=== PATIENT | male | born 1970 | race Caucasian/White ===

== ENCOUNTER 2020-11-07 15:43 | Emergency (ER) | payer SELFPAY ==
[2020-11-07 15:45] VITALS: BP 122/83; PULSE 136; RESP 16; TEMP 36.7; O2SAT 97; BMI 25.1
--- NOTE | 2020-11-07 16:09 | EKG12_ITS ---
Test Reason : MENTAL CLEARANCE Blood Pressure : / mmHG Vent. Rate : 073 BPM Atrial Rate : 073 BPM P-R Int : 124 ms QRS Dur : 084 ms QT Int : 376 ms P-R-T Axes : 053 052 069 degrees QTc Int : 414 ms Normal sinus rhythm Normal ECG Confirmed by DAVID MASTERS, CRISTIAN ([id number]), writer editor SAÚL ASHBY ([id number]) on 11/11/2020 9:47:22 AM Referred By: MIKO Confirmed By:RONNIE HERNANDEZ MD
[2020-11-07 16:26] LABS: Absolute Lymphocyte Count 1.21 X10^3/uL (0.83-4.51); Absolute Neutrophil Count 4.4 X10^3/uL (2.0-7.7); Basophil# 0.06 X10^3/uL; Eosinophil# 0.01 X10^3/uL; Eosinophils% 0.2 % (0-5); Hematocrit 47.8 % (40-54); Hemoglobin 15.3 g/dL (13.0-16.5); Lymphocyte # 1.21 X10^3/ul (0.83-4.51); Lymphocyte % 19.2 % (19-41); Mean Corpuscular Hgb 25.6 pg (27.0-32.0); Mean Corpuscular Volume 80.1 fL (80-94); Mean Platelet Vol. 11.4 fl (6.2-12.0); Monocyte# 0.59 X10^3/uL; Monocyte% 9.4 % (0-10); NRBC Flagged by Analyzer 0 % (0-5); Neutrophil % 69.7 % (47-70); Platelet Count 257 K/mm3 (150-450); RBC Distribution Width CV 14.4 % (11.6-14.6); RBC Distribution Width SD 41.5 fl (35.1-43.9); Red Blood Count 5.97 M/mm3 (4.6-6.2); White Blood Count 6.3 K/mm3 (4.4-11.0)
[2020-11-07 16:30] LABS: Anion Gap 6 (5-15); BUN 8 mg/dL (7-18); BUN/Creat Ratio 8.6 RATIO (10-20); Calcium,Total 8.8 mg/dL (8.5-10.1); Chloride 104 mmol/L (98-107); Creatinine, Serum 0.93 mg/dL (0.70-1.30); EST Glomerular Filtration Rate 92 mL/min (>60); Est Glom Filt Rate - Afr Amer 111 mL/min (>60); Estimated Creatinine Clearance 97.14 ml/min; Glucose 98 mg/dL (74-106); Potassium 3.8 mmol/L (3.5-5.1); Sodium Level 135 mmol/L (136-145)
--- NOTE | 2020-11-07 18:11 | EDS_ITS ---
HPI <Dr. Evan Maynard MD - Last Filed: 11/07/20 22:23> History of Present Illness Chief Complaint: Suicidal Informant: patient Onset/Context/Timing Onset: Today Context: Gradual Onset Timing: Continuous Associated Symptoms Associated Symptoms ED: Negative for abdominal pain Narrative Narrative: 50-year-old male history of schizophrenia. Says been out of his medications for a month. States he has been convicted by God to commit suicide. Denies any prior psychiatric hospitalization. Denies any prior suicide attempt or attempt at self-harm. States at work today broke down crying and he was sent into the emergency department. Denies any recent illness. Avelino es any drug use. Prior similar symptoms: Yes Recent Illness/Hospitalization: No PFSH <Dr. Evan Maynard MD - Last Filed: 11/07/20 22:23> PFSH Home Medications NK 11/07/20 [History Last Taken Unknown] Allergy/AdvReac Type Severity Reaction Status Date / Time No Known Allergies Allergy Verified 11/07/20 15:48 Social History Smoking Status: Never smoker ROS <Dr. Evan Maynard MD - Last Filed: 11/07/20 22:23> ROS ED ROS Narrative Patient denies recent illness. Review of Systems ROS Unobtainable: Denies due to encephalopathy Constitutional Constitutional ED: Denies anorexia, lethargy or malaise Eyes Eyes: Denies change in vision ENT ENT ED: Denies bleeding gums or dry mouth Cardiovascular Cardiovascular: Denies abdominal pain Respiratory/Chest Respiratory/Chest: Denies chest congestion or chest tightness Gastrointestinal Gastrointestinal: Denies abdominal pain Genitourinary Genitourinary ED: Denies flank pain Musculoskeletal Musculoskeletal: Denies back pain Integumentary Denies change in hair or jaundice Neurologic Neurologic: Denies abnormal speech Psychiatric Psychiatric: Reports as per HPI, depression, difficulty concentrating, suicidal ideation and suicidal thoughts; Denies cognitive impairment, confusion, hallucinations or homicidal ideation Endocrine Endocrinology: Denies change in body appearance Hematologic/Lymphatic Hematologic/Lymphatic: Denies lymphadenopathy Allergic/Immunologic Allergic/Immunologic ED: Denies lip swelling or mouth swelling EXAM <Dr. Evan Maynard MD - Last Filed: 11/07/20 22:23> Physical Exam Narrative Exam Narrative: Middle-age male no acute distress vital signs stable afebrile. He is cooperative. He makes eye contact. Is not violent. Exam normal. Lungs are clear equal symmetrical. Heart regular rhythm currently his heart rate around 100. It was higher when he initially was triaged. Abdomen soft nontender normal bowel sounds no peritoneal signs. Moving all 4 extremities. No signs of track brown or injuries. Back nontender. Neurologically is awake alert with no focal motor deficits. Const Vital Signs: 11/07/20 15:45 11/07/20 21:40 11/07/20 22:35 Temperature 98.0 F Temperature Source Temporal Pulse Rate 136 H Respiratory Rate 16 14 16 Blood Pressure 122/83 H Blood Pressure Mean 96 Pulse Ox 97 Oxygen Delivery Method Room Air 11/08/20 00:06 11/08/20 01:59 11/08/20 02:50 Temperature Temperature Source Pulse Rate 88 Respiratory Rate 16 14 14 Blood Pressure 124/72 H Blood Pressure Mean 89 Pulse Ox 95 Oxygen Delivery Method Room Air 11/08/20 03:22 11/08/20 04:20 11/08/20 05:49 Temperature Temperature Source Pulse Rate 85 Respiratory Rate 14 14 16 Blood Pressure 130/72 H Blood Pressure Mean 91 Pulse Ox 99 Oxygen Delivery Method Room Air Positive well nourished, well developed, alert, oriented x3 and no apparent distress General Appearance ED: active, cooperative, comfortable, well kempt and well developed HEENT Reports normocephalic and moist mucous membranes Eyes PERRL and EOMs intact bilaterally Neck full ROM, No nuchal rigidity, no lymphadenopathy, supple, no meningeal signs and no JVD Lymph Lymphatic: no lymphadenopathy noted and no lymphedema noted; Negative for lymphedema or lymphadenopathy Chest Wall inspection of chest normal and palpation of chest normal Resp normal respiratory effort, normal air movement, no retractions and no use of accessory muscles Cardio regular rate, regular rhythm, S1 normal heart sound, S2 normal heart sound, no murmurs, no rub, no gallops, no clicks and no JVD GI normal to inspection, nondistended, normoactive bowel sounds, soft to palpation, non-tender and non-distended Back/Spine no CVA tenderness, normal ROM and normal to inspection Extremity normal to inspection, full ROM, no joint enlargement, no clubbing, cyanosis or edema, no calf tenderness and no pedal edema Neuro oriented x3, CN's II-XII intact bilaterally, moves all extremities, no focal motor deficits and no sensory deficits noted Psych cooperative, speech normal, activity/motor behavior normal, denies hallucinations and denies homicidal ideation; Negative for thought process normal or denies suicidal ideation Appearance: grossly normal, appropriate and well kempt Skin no rashes or lesions noted and no wounds <Dr. Edmund Thompson MD - Last Filed: 11/08/20 06:45> Physical Exam Const Vital Signs: 11/07/20 15:45 11/07/20 21:40 11/07/20 22:35 Temperature 98.0 F Temperature Source Temporal Pulse Rate 136 H Respiratory Rate 16 14 16 Blood Pressure 122/83 H Blood Pressure Mean 96 Pulse Ox 97 Oxygen Delivery Method Room Air 11/08/20 00:06 11/08/20 01:59 11/08/20 02:50 Temperature Temperature Source Pulse Rate 88 Respiratory Rate 16 14 14 Blood Pressure 124/72 H Blood Pressure Mean 89 Pulse Ox 95 Oxygen Delivery Method Room Air 11/08/20 03:22 11/08/20 04:20 11/08/20 05:49 Temperature Temperature Source Pulse Rate 85 Respiratory Rate 14 14 16 Blood Pressure 130/72 H Blood Pressure Mean 91 Pulse Ox 99 Oxygen Delivery Method Room Air MDM <Dr. Evan Maynard MD - Last Filed: 11/07/20 22:23> MDM MDM Narrative Medical decision making narrative: Patient be evaluated by crisis. He is medically cleared by myself on both a historical and physical exam basis. Also by his laboratories. Repeat exam patient doing well 10:20 PM. Awaiting finalization of crisis evaluation and possible placement. Lab Data Attestation: I reviewed the patient's lab results. Lab results narrative: CBC unremarkable. White count of 6. Hemoglobin 15. Chemistries unremarkable gap of 6. Creatinine 0.9. Alcohol negative. Covid negative. Tox negative. Labs: Laboratory Results - last 24 hr 11/07/20 11/07/20 11/07/20 16:03 16:03 16:03 WBC 6.3 RBC 5.97 Hgb 15.3 Hct 47.8 MCV 80.1 MCH 25.6 L MCHC 32.0 RDW Std Deviation 41.5 RDW Coeff of [place] 14.4 Plt Count 257 MPV 11.4 Immature Gran % (Auto) 0.500 Neut % (Auto) 69.7 Lymph % (Auto) 19.2 [place] % (Auto) 9.4 Eos % (Auto) 0.2 Baso % (Auto) 1.0 Absolute Neuts (auto) 4.4 Absolute Lymphs (auto) 1.21 Nucleated RBC % 0 Sodium 135 L Potassium 3.8 Chloride 104 Carbon Dioxide 25.0 Anion Gap 6 BUN 8 Creatinine 0.93 Estim Creat Clear Calc 97.14 Est GFR (MDRD) Af Amer 111 Est GFR (MDRD) Non-Af 92 BUN/Creatinine Ratio 8.6 L Glucose 98 Calcium 8.8 Total Bilirubin Direct Bilirubin AST ALT Alkaline Phosphatase Total Protein Albumin Globulin Urine Opiates Screen Urine Methadone Screen Ur Barbiturates Screen Ur Phencyclidine Scrn Ur Amphetamines Screen U Methamphetamin-MDMA U Benzodiazepines Scrn Urine Cocaine Screen U Cannabinoids Screen Ur Drug Screen Comment Ethyl Alcohol 4.0 11/07/20 11/07/20 16:03 19:40 WBC RBC Hgb Hct MCV MCH MCHC RDW Std Deviation RDW Coeff of [place] Plt Count MPV Immature Gran % (Auto) Neut % (Auto) Lymph % (Auto) [place] % (Auto) Eos % (Auto) Baso % (Auto) Absolute Neuts (auto) Absolute Lymphs (auto) Nucleated RBC % Sodium Potassium Chloride Carbon Dioxide Anion Gap BUN Creatinine Estim Creat Clear Calc Est GFR (MDRD) Af Amer Est GFR (MDRD) Non-Af BUN/Creatinine Ratio Glucose Calcium Total Bilirubin 0.30 Direct Bilirubin 0.12 AST 10 L ALT 24 Alkaline Phosphatase 76 Total Protein 7.5 Albumin 4.1 Globulin 3.4 Urine Opiates Screen NEGATIVE Urine Methadone Screen NEGATIVE Ur Barbiturates Screen NEGATIVE Ur Phencyclidine Scrn NEGATIVE Ur Amphetamines Screen NEGATIVE U Methamphetamin-MDMA NEGATIVE U Benzodiazepines Scrn NEGATIVE Urine Cocaine Screen NEGATIVE U Cannabinoids Screen NEGATIVE Ur Drug Screen Comment Ethyl Alcohol Rhythm Strip Rhythm Strip: Sinus Rhythm Rate: 73 Ectopy: None EKG Initial EKG: Attestation: I personally reviewed and interpreted this EKG as follows: Interpretation: Sinus Rhythm and No Acute Injury Pattern Comments: Normal sinus rhythm rate of 73 no acute signs of NM nor ischemia. Prior EKG tracings: not available for review Prior: No Prior <Dr. Edmund Thompson MD - Last Filed: 11/08/20 06:45> MDM MDM Narrative Medical decision making narrative: Patient presents with depression and suicidal ideation. Patient was turned over to me at change of shift. Patient initially seen by Dr. Maynard. 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 No issues arose. Patient's care will be transferred to Dr. Mendoza this morning at change of shift. Crisis is aware of him and making arrangements for transfer to psychiatric facility for appropriate definitive care. Based on report given by Dr. Maynard and review of his laboratory studies in my professional opinion patient is medically cleared for transfer to psychiatric facility. Lab Data Attestation: I reviewed the patient's lab results. Labs: Laboratory Results - last 24 hr 11/07/20 11/07/20 11/07/20 16:03 16:03 16:03 WBC 6.3 RBC 5.97 Hgb 15.3 Hct 47.8 MCV 80.1 MCH 25.6 L MCHC 32.0 RDW Std Deviation 41.5 RDW Coeff of [place] 14.4 Plt Count 257 MPV 11.4 Immature Gran % (Auto) 0.500 Neut % (Auto) 69.7 Lymph % (Auto) 19.2 [place] % (Auto) 9.4 Eos % (Auto) 0.2 Baso % (Auto) 1.0 Absolute Neuts (auto) 4.4 Absolute Lymphs (auto) 1.21 Nucleated RBC % 0 Sodium 135 L Potassium 3.8 Chloride 104 Carbon Dioxide 25.0 Anion Gap 6 BUN 8 Creatinine 0.93 Estim Creat Clear Calc 97.14 Est GFR (MDRD) Af Amer 111 Est GFR (MDRD) Non-Af 92 BUN/Creatinine Ratio 8.6 L Glucose 98 Calcium 8.8 Total Bilirubin Direct Bilirubin AST ALT Alkaline Phosphatase Total Protein Albumin Globulin Urine Opiates Screen Urine Methadone Screen Ur Barbiturates Screen Ur Phencyclidine Scrn Ur Amphetamines Screen U Methamphetamin-MDMA U Benzodiazepines Scrn Urine Cocaine Screen U Cannabinoids Screen Ur Drug Screen Comment Ethyl Alcohol 4.0 11/07/20 11/07/20 16:03 19:40 WBC RBC Hgb Hct MCV MCH MCHC RDW Std Deviation RDW Coeff of [place] Plt Count MPV Immature Gran % (Auto) Neut % (Auto) Lymph % (Auto) [place] % (Auto) Eos % (Auto) Baso % (Auto) Absolute Neuts (auto) Absolute Lymphs (auto) Nucleated RBC % Sodium Potassium Chloride Carbon Dioxide Anion Gap BUN Creatinine Estim Creat Clear Calc Est GFR (MDRD) Af Amer Est GFR (MDRD) Non-Af BUN/Creatinine Ratio Glucose Calcium Total Bilirubin 0.30 Direct Bilirubin 0.12 AST 10 L ALT 24 Alkaline Phosphatase 76 Total Protein 7.5 Albumin 4.1 Globulin 3.4 Urine Opiates Screen NEGATIVE Urine Methadone Screen NEGATIVE Ur Barbiturates Screen NEGATIVE Ur Phencyclidine Scrn NEGATIVE Ur Amphetamines Screen NEGATIVE U Methamphetamin-MDMA NEGATIVE U Benzodiazepines Scrn NEGATIVE Urine Cocaine Screen NEGATIVE U Cannabinoids Screen NEGATIVE Ur Drug Screen Comment Ethyl Alcohol Discharge Plan Triage Chief Complaint: Suicidal ED Provider: Evan Maynard Dx/Rx/DC Orders Clinical Impression: Acute depression, Depression with suicidal ideation, Schizophrenia Prescriptions: No Action NK RF: 0 Primary Care Provider: Care Physician,No Primary Referrals: Care Physician,No Primary [Primary Care Provider] - Disposition Disposition: Psychiatric Hospital or Unit
--- NOTE | 2020-11-07 18:33 | CM.ED ---
SOCIAL WORK Patient is self-pay. Crisis to evaluate. Referral faxed and called to Crisis at this time as patient is medically cleared. Harjinder Gillespie, BI REPORT DEVELOPER, FRONT SIGHT ATTACHER
--- NOTE | 2020-11-07 19:41 | CM.ED ---
SOCIAL WORK Monica from Crisis on phone with patient at this time. Harjinder Gillespie, BRICKLAYER'S ASSISTANT, CODE MACHINE OPERATOR
--- NOTE | 2020-11-07 20:17 | CM.ED ---
SOCIAL WORK Received call from Monica with Crisis, plan is for inpatient psych. Monica to facilitate placement. Staff kevin. Harjinder Gillespie, CREDIT CONTROL CLERK, COPPER PLATER
[2020-11-07 20:18] LABS: Amphetamine Urine VISTA NEGATIVE (<1000 ng/mL); Barbiturate Urine VISTA NEGATIVE (< 200 ng/mL); Benzodiazepine Urine VISTA NEGATIVE (< 200 ng/mL); Cocaine Urine VISTA NEGATIVE (< 300 ng/mL); Ecstacy Urine VISTA NEGATIVE (< 500 ng/mL); Methadone Urine VISTA NEGATIVE (< 300 ng/mL); PCP Urine VISTA NEGATIVE (< 25 ng/mL); THC Urine VISTA NEGATIVE (< 50 ng/mL); Vista UDS pH Range 6
[2020-11-07 21:40] VITALS: RESP 14
[2020-11-07 22:35] VITALS: RESP 16
[2020-11-08] VITALS (10 sets, daily range): BP systolic 124–138; BP diastolic 66–88; PULSE 69–88; RESP 14–16; TEMP 36.2; O2SAT 95–99
[2020-11-08 01:14] LABS: AST(SGOT) 10 U/L (15-37); Alanine Aminotransfer ALT/SGPT 24 U/L (16-61); Albumin, Serum 4.1 g/dL (3.2-5.0); Alkaline Phosphatase 76 U/L (45-117); Bilirubin, Direct 0.12 mg/dL (0.00-0.30); Globulin 3.4 g/dL (2.2-4.2); Protein, Total 7.5 g/dL (6.4-8.2)
--- NOTE | 2020-11-08 10:31 | CM.ED ---
SOCIAL WORK Call to Crisis for update on placement, spoke with Katt. Per [facility], referral [facility] for [facility] case agreement as patient is self-pay. Pending review at this time. Harjinder Gillespie, DREDGE DECKHAND, MORTGAGE COORDINATOR
== END 2020-11-08 12:02 ==
PROVIDERS: Emergency Provider Emergency Medicine
DX: F32.9 Major depressive disorder, single episode, unspecified (principal); F20.9 Schizophrenia, unspecified; R45.851 Suicidal ideations
CPT/HCPCS: 80048; 80076; 80307; 82077; 85025; 87426; 93005; 99284

== ENCOUNTER → 2024-09-22 | Outpatient (CLI) | payer OTHER, SELFPAY ==
--- NOTE | 2024-09-22 11:05 | RAD_ITS ---
PROCEDURE: ORBITS FOR FOREIGN BODY 09/22/2024 REASON FOR EXAM: MRI CLEARANCE TECHNIQUE: 2 view(s) of the facial bones COMPARISON: None available FINDINGS: No radiopaque foreign body identified. RAD/Orbits for Foreign Body IMPRESSION: No radiopaque foreign body identified. Reading Location: [id number]
[2024-09-22 13:17] LABS: Erythrocyte Sedimentation Rate 4 mm/hr (0-20)
[2024-09-22 13:21] LABS: Absolute Lymphocyte Count 1.41 X10^3/uL (0.83-4.51); Absolute Neutrophil Count 2.3 X10^3/uL (2.0-7.7); Basophil# 0.05 X10^3/uL; Basophil% 1.2 % (0-1); Eosinophil# 0.04 X10^3/uL; Eosinophils% 0.9 % (0-5); Hematocrit 43.4 % (40-54); Hemoglobin 13.9 g/dL (13.0-16.5); Lymphocyte # 1.41 X10^3/ul (0.83-4.51); Lymphocyte % 32.6 % (19-41); Mean Corpuscular Hgb 25.7 pg (27.0-32.0); Mean Corpuscular Volume 80.4 fL (80-94); Mean Platelet Vol. 10.7 fl (6.2-12.0); Monocyte# 0.52 X10^3/uL; NRBC Flagged by Analyzer 0 % (0-5); Neutrophil # 2.29 X10^3/uL (2.7-7.7); Neutrophil % 53.1 % (47-70); Platelet Count 231 K/mm3 (150-450); RBC Distribution Width CV 14.6 % (11.6-14.6); RBC Distribution Width SD 42.5 fl (35.1-43.9); White Blood Count 4.3 K/mm3 (4.4-11.0)
[2024-09-22 14:00] LABS: ALB/GLOB Ratio 2.2 RATIO (0.9-2.4); AST(SGOT) 15 U/L (<=37); Alanine Aminotransfer ALT/SGPT 20 U/L (<=46); Albumin, Serum 4.4 g/dL (3.5-5.0); Alkaline Phosphatase 67 U/L (40-129); Anion Gap 10 (5-15); BUN 14 mg/dL (4-19); Calcium,Total 8.4 mg/dL (7.6-11.0); Carbon Dioxide 22.9 mmol/L (21.0-32.0); Chloride 99 mmol/L (98-108); Creatinine, Serum 0.93 mg/dL (0.70-1.20); EST Glomerular Filtration Rate 99 (>60); Glucose 92 mg/dL (70-99); Potassium 4.1 mmol/L (3.3-5.1); Protein, Total 6.3 g/dL (5.9-8.4); Sodium Level 132 mmol/L (133-145)
[2024-09-22 14:01] LABS: CRP < 3.00 mg/L (0.0-3.0); Magnesium 2.5 mg/dL (1.5-2.2)
[2024-09-25 15:08] LABS: ANTINUCLEAR ANTIBODIES DIRECT Negative (Negative)
[2024-09-26 21:07] LABS: QNTFERON TB Mitogen Value > 10.00 IU/mL (.); QNTFERON TB Nil Value 0.03 IU/mL (.); QNTFERON TB1+ Ag Value 0.04 IU/mL (.); QNTFERON TB2+ Ag Value 0.03 IU/mL (.); QNTIFERON TB Positive Criteria Negative (Negative)
== END | disposition home or self-care (01) ==
LOC: MTLAB 11:04
PROVIDERS: PCP Nurse Practitioner Family
DX: R04.2 Hemoptysis (principal); G20.C Parkinsonism, unspecified; S00.259A Superficial foreign body of unspecified eyelid and periocular area, initial encounter; X58.XXXA Exposure to other specified factors, initial encounter
CPT/HCPCS: 36415; 70030; 80053; 83735; 84443; 85025; 85652; 86038; 86140; 86225; 86480; 86780

== ENCOUNTER → 2024-10-16 | Outpatient (CLI) | payer OTHER, SELFPAY ==
--- NOTE | 2024-10-16 06:52 | MRI_ITS ---
PROCEDURE: BRAIN W/WO CONTRAST 10/16/2024 REASON FOR EXAM: TREMOR TECHNIQUE: BRAIN W/WO CONTRAST Multiplanar and multisequence images were obtained. CONTRAST: Clariscan VOLUME: 17 mL intravenous. COMPARISON: None. FINDINGS: Brain: No intracranial hemorrhage, mass, or mass effect is seen. Very mild bilateral cerebral white matter changes, consistent with chronic ischemic changes of small-vessel disease. No other focus of abnormal signal is seen. No extra-axial fluid collection is seen. No orbital abnormality is seen. Diffusion: No focus of diffusion restriction is seen. Ventricles: Normal. Major Intracranial Vessels: Unremarkable Sinuses: Minimal mucosal thickening. Mastoids: Clear. MRI/Brain W/WO Contrast IMPRESSION: 1. Very mild bilateral cerebral white matter changes, most likely due to chroni c ischemic changes of small-vessel disease. 2. No intracranial mass or mass effect is seen. Reading Location: [place] [id number]
--- OUTSIDE RECORDS SUMMARY | 2024-10-16 07:22 | XMS RPT_ITS | CCD ---
Author Organization [facility] Care Team Providers Care Airline Transport Pilot Name Role Phone JENNIFER SILVESTRE MD Admitting Unavailable JENNIFER SILVESTRE MD Attending Unavailable JENNIFER SILVESTRE MD Primary Care Unavailable ALISON CADENA DAIRY NUTRITION SPECIALIST Consulting Unavailable PROVIDER, UNKNOWN Consulting Unavailable PROVIDER, UNKNOWN Consulting Unavailable Care Physician, No Primary Primary Care Provider Unavailable Care Physician, No Primary Referring Provider Un available Ky MASTERS, Dr. Daugherty Attending Provider Tammi CROP PEST CONTROL SPECIALIST-C, Alison Primary Care Provider Axel CROP PEST CONTROL SPECIALIST-CArlette Attending Provider [phone] Axel CROP PEST CONTROL SPECIALIST-CArlette Referring Provider Care Physician, No Primary Primary Care Unava ilable Care Physician, No Primary Referring Unava ilable Dat Mcpherson Attending Unavailable Arlette Reyna Referring Unavailable Alison Cadena Primary Care Unavailable Arlette Reyna Attending Unavailable Arlette Reyna Attending Unavailable Arlette Reyna Referring Unavailable Alison Cadena Primary Care Unavailable Medications Current Medications Medication Drug Class(es) Dates Sig (Normalized) Sig (Original) ARIPiprazole 15 mg oral tablet (2 sources) Atypical Antipsychotic Start: 09-22-2024 take 1 tablet by mouth once daily Aripiprazole 15 mg tablet Active 15 mg PO daily September 22, 2024 12:00am carbidopa 10 mg / levodopa 100 mg oral tablet (2 sources) Aromatic Amino Acid Decarboxylation Inhibitor, Aromatic Amino Acid Start: 09-22-2024 take 1 tablet by mouth once daily, then take 1 tablet by mouth twice daily, then take 1 tablet by mouth three times daily Carbidopa-Levodop a (Sinemet) 10-100 mg tablet Active 1 {tbl} PO THREE TIMES A DAY 90 September 22, 2024 12:00am Gradually increase, take 1 tablet PO once daily x4 days, then 1 tablet BID x4 days, then maintain on 1 tablet TID traZODone hydrochloride 100 mg oral tablet (2 sources) Serotonin Reuptake Inhibitor Start: 09-22-2024 take 300-400 mg by mouth at bedtime as needed Trazodone 100 mg tablet Active 300 - 400 mg PO AT BEDTIME as needed for insomnia September 22, 2024 12:00am Problems Problem Classification Problem Date Documented Date Episodic/Chronic Mood disorders (5 sources) Depressive disorder; 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 This may complicate management of his Parkinson's disease as medications may exacerbate hallucinosis. Superficial injury; contusion (1 source) Superficial foreign body of unspecified eyelid and periocular area, initial encounter; Translations: [Superficial foreign body of unspecified eyelid and periocular area, initial encounter] Onset: 09-22-2024 Episodic Unclassified (4 sources) Parkinsonism; Translations: [Parkinsonism] 09-22-2024 Chronic Comment on above: Patient has had a le ft hand tremor since that being in high school. It is currently exacerbated with age as it has become progressive. Now also involves his right hand to certain degree. No other particular aspects of Parkinson's identified except for some mild increase in rigidity left upper extremity. Unclassified (2 sources) Parkinsonism, unspecified; Translations: [Parkinsonism, unspecified] Onset: 09-22-2024 Results Test Name Value Interpretation Reference Range Facility Treponema palladium Ab (FTA) on 09-29-2024 T PALLIDUM-FTA Non-Reactive Normal [facility] Comment on above: Performed By: #### L 3100.5450, L801.4400, L501.5200, L100.0100, L3400.8000, L500.4050, L501.9520, L501.6710, L101.9900 #### [facility] [address] [place], [address] Quantiferon TB-Gold+on 09-26 QFT MITOGEN REDD > 10.00 Normal . [facility] Comment on above: Performed By: #### L 3100.5450, L801.4400, L501.5200, L100.0100, L3400.8000, L500.4050, L501.9520, L501.6710, L101.9900 #### [facility] [address] [place], [address] QFT NIL VALUE 0.03 IU/mL Normal . [facility] Comment on above: Performed By: #### L 3100.5450, L801.4400, L501.5200, L100.0100, L3400.8000, L500.4050, L501.9520, L501.6710, L101.9900 #### [facility] [address] [place], [address] QFT TB GOLD+ Comment Normal . [facility] Comment on above: Result Comment: Chris tiFERON-TB Gold Plus is a qualitative indirect test for M tuberculosis infection (including disease) and is intended for use in conjunction with risk assessment, radiography, and other medical and diagnostic evaluations. The QuantiFERON-TB Gold Plus result is determined by subtracting the Nil value from either TB antigen (Ag) value. The Mitogen tube serves as a control for the test. Performed By: #### L 3100.5450, L801.4400, L501.5200, L100.0100, L3400.8000, L500.4050, L501.9520, L501.6710, L101.9900 #### [facility] [address] [place], [address] QFT TB POS CRIT Negative Normal Negative [facility] Comment on above: Result Comment: No r esponse to M tuberculosis antigens detected. Infection with M tuberculosis is unlikely, but high risk individuals should be considered for additional testing (ATS/IDSA/CDC Clinical Practice Guidelines, 2017). The reference range is an Antigen minus Nil result of <0.35 IU/mL. The specimen received for QuantiFERON testing was incubated by the ordering institution. Specific procedures outlined in our Directory of Services and in the package insert for the QuantiFERON Gold (In Tube) test must be followed to enable for proper stimulation of cells for the production of interferon gamma. Chemiluminescence immunoassay methodology Performed at: [facility] [id number] Welding Equipment Repairer: Stanton Cisneros PhD, Phone: [phone] Performed By: #### L 3100.5450, L801.4400, L501.5200, L100.0100, L3400.8000, L500.4050, L501.9520, L501.6710, L101.9900 #### [facility] [address] [place], [address] QFT TB1+ AG REDD 0.04 IU/mL Normal . [facility] Comment on above: Performed By: #### L 3100.5450, L801.4400, L501.5200, L100.0100, L3400.8000, L500.4050, L501.9520, L501.6710, L101.9900 #### [facility] [address] [place], [place], [id number] QFT TB2+ AG REDD 0.03 IU/mL Normal . [facility] Comment on above: Performed By: #### L 3100.5450, L801.4400, L501.5200, L100.0100, L3400.8000, L500.4050, L501.9520, L501.6710, L101.9900 #### [facility] [address] [place], [address] ANGELINA w/ Reflex Mult Confirmon 09-25-2024 ANGELINA,DIRECT Negative Normal Negative [facility] Comment on above: Result Comment: Perf ormed at: - [facility] [address], [place], [place] [id number] Welding Equipment Repairer: Stanton Cisneros PhD, Phone: [phone] Performed By: #### L 3100.5450, L801.4400, L501.5200, L100.0100, L3400.8000, L500.4050, L501.9520, L501.6710, L101.9900 #### [facility] [address] [place], [place], [id number] Absolute lymphocyte countOrd ered By: Arlette Reyna on 09-22-2024 Lymphocytes Auto (Unsp spec) [#/Vol] 1.41 10*3/uL 0.83-4.51 [facility] Absolute neutrophil countOrd ered By: Arlette Reyna on 09-22-2024 Neutrophils (Bld) [#/Vol] 2.3 10*3/uL 2.0-7.7 [facility] Anion gap in Serum or Plasma Ordered By: Arlette Reyna on 09-22-2024 Anion gap [Moles/Vol] 10 mmol/L 5- [facility] Automated lymphocyte count a s percentage of total leukocytesOrdered By: Arlette Reyna on 09-22-2024 Lymphocytes/100 WBC Auto (Unsp spec) 32.6 % - [facility] BUN/creatinine ratioOrdered By: Arlette Reyna on 09-22-2024 Urea nitrogen/Creatinine [Mass ratio] 15.0 mg/mg 10-20 [facility] Basophil percentageOrdered B y: Arlette Reyna on 09-22-2024 Basophils/100 WBC (Bld) 1.2 % High 0-1 [facility] Bilirubin, totalOrdered By: Arlette Reyna on 09-22-2024 Bilirubin [Mass/Vol] 0.20 mg/dL Normal 0.00-1.30 [facility] Comment on above: Performed By: #### L 3100.5450, L801.4400, L501.5200, L100.0100, L3400.8000, L500.4050, L501.9520, L501.6710, L101.9900 #### [facility] [address] [place], [address] (778) CBC W/Diff, Automatedon 05-3 0-2024 Absolute Lymph 1.41 X10 3/uL Normal 0.83-4.51 [facility] Comment on above: Performed By: #### L 3100.5450, L801.4400, L501.5200, L100.0100, L3400.8000, L500.4050, L501.9520, L501.6710, L101.9900 #### [facility] [address] [facility] [place], [address] (412) Absolute Neut 2.3 X10 3/uL Normal 2.0-7.7 [facility] Comment on above: Performed By: #### L 3100.5450, L801.4400, L501.5200, L100.0100, L3400.8000, L500.4050, L501.9520, L501.6710, L101.9900 #### [facility] [address] [facility] [place], [address] [phone] Basophils/100 WBC (Bld) 1.2 % High 0-1 [facility] Comment on above: Performed By: #### L 3100.5450, L801.4400, L501.5200, L100.0100, L3400.8000, L500.4050, L501.9520, L501.6710, L101.9900 #### [facility] [address] [place], [address] ([phone] Eosinophils/100 WBC (Bld) 0.9 % Normal 0-5 [facility] Comment on above: Performed By: #### L 3100.5450, L801.4400, L501.5200, L100.0100, L3400.8000, L500.4050, L501.9520, L501.6710, L101.9900 #### [facility] [address] [place], [address] Erythrocyte distribution width (RBC) [Ratio] 14.6 % Normal 11.6-14.6 [facility] Comment on above: Performed By: #### L 3100.5450, L801.4400, L501.5200, L100.0100, L3400.8000, L500.4050, L501.9520, L501.6710, L101.9900 #### [facility] [address] [place], [address] (791) Hematocrit (Bld) [Volume fraction] 43.4 % Normal 40-54 [facility] Comment on above: Performed By: #### L 3100.5450, L801.4400, L501.5200, L100.0100, L3400.8000, L500.4050, L501.9520, L501.6710, L101.9900 #### [facility] [address] [place], [address] Hemoglobin (Bld) [Mass/Vol] 13.9 g/dL Normal 13.0-16.5 [facility] Comment on above: Performed By: #### L 3100.5450, L801.4400, L501.5200, L100.0100, L3400.8000, L500.4050, L501.9520, L501.6710, L101.9900 #### [facility] [address] [place], [address] IG% 0.200 Normal 0.0-0.9 [facility] Comment on above: Result Comment: IG% - Immature Granulocytes (promyelocytes, myelocytes and metamyelocytes) > 1% indicates that a LEFT SHIFT is Present. Performed By: #### L 3100.5450, L801.4400, L501.5200, L100.0100, L3400.8000, L500.4050, L501.9520, L501.6710, L101.9900 #### [facility] [address] [place], [address] Lymphocytes/100 WBC (Bld) 32.6 % Normal 19-41 [facility] Comment on above: Performed By: #### L 3100.5450, L801.4400, L501.5200, L100.0100, L3400.8000, L500.4050, L501.9520, L501.6710, L101.9900 #### [facility] [address] [place], [address] MCH (RBC) [Entitic mass] 25.7 pg Low 27.0-32.0 [facility] Comment on above: Performed By: #### L 3100.5450, L801.4400, L501.5200, L100.0100, L3400.8000, L500.4050, L501.9520, L501.6710, L101.9900 #### [facility] [address] [place], [address] MCHC (RBC) [Mass/Vol] 32.0 g/dL Normal 32-36 [facility] Comment on above: Performed By: #### L 3100.5450, L801.4400, L501.5200, L100.0100, L3400.8000, L500.4050, L501.9520, L501.6710, L101.9900 #### [facility] [address] [place], [address] MCV (RBC) [Entitic vol] 80.4 fL Normal 80-94 [facility] Comment on above: Performed By: #### L 3100.5450, L801.4400, L501.5200, L100.0100, L3400.8000, L500.4050, L501.9520, L501.6710, L101.9900 #### [facility] [address] [place], [address] Monocytes/100 WBC (Bld) 12.0 % High 0-10 [facility] Comment on above: Performed By: #### L 3100.5450, L801.4400, L501.5200, L100.0100, L3400.8000, L500.4050, L501.9520, L501.6710, L101.9900 #### [facility] [address] [place], [address] Neutrophils/100 WBC (Bld) 53.1 % Normal 47-70 [facility] Comment on above: Performed By: #### L 3100.5450, L801.4400, L501.5200, L100.0100, L3400.8000, L500.4050, L501.9520, L501.6710, L101.9900 #### [facility] [address] [place], [address] Nucleated RBC (Bld) [#/Vol] 0 10*3/uL Normal 0-5 [facility] Comment on above: Performed By: #### L 3100.5450, L801.4400, L501.5200, L100.0100, L3400.8000, L500.4050, L501.9520, L501.6710, L101.9900 #### [facility] [address] [place], [address] Platelet mean volume (Bld) [Entitic vol] 10.7 fL Normal 6.2-12.0 [facility] Comment on above: Performed By: #### L 3100.5450, L801.4400, L501.5200, L100.0100, L3400.8000, L500.4050, L501.9520, L501.6710, L101.9900 #### [facility] [address] [place], [address] Platelets (Bld) [#/Vol] 231 10*3/uL Normal 150-450 [facility] Comment on above: Performed By: #### L 3100.5450, L801.4400, L501.5200, L100.0100, L3400.8000, L500.4050, L501.9520, L501.6710, L101.9900 #### [facility] [address] [place], [address] RBC (Bld) [#/Vol] 5.40 10*6/uL Normal 4.6-6.2 [facility] Comment on above: Performed By: #### L 3100.5450, L801.4400, L501.5200, L100.0100, L3400.8000, L500.4050, L501.9520, L501.6710, L101.9900 #### [facility] [address] [place], [address] RDW SD 42.5 fl Normal 35.1-43.9 [facility] Comment on above: Performed By: #### L 3100.5450, L801.4400, L501.5200, L100.0100, L3400.8000, L500.4050, L501.9520, L501.6710, L101.9900 #### [facility] [address] [place], [address] WBC (Bld) [#/Vol] 4.3 10*3/uL Low 4.4-11.0 [facility] Comment on above: Performed By: #### L 3100.5450, L801.4400, L501.5200, L100.0100, L3400.8000, L500.4050, L501.9520, L501.6710, L101.9900 #### [facility] [address] [place], [address] CRPon 09-22-2024 C-REACTIVE PROT < 3.00 Normal 0.0-3.0 [facility] Comment on above: Performed By: #### L 3100.5450, L801.4400, L501.5200, L100.0100, L3400.8000, L500.4050, L501.9520, L501.6710, L101.9900 #### [facility] [address] [place], [place], [id number] Carbon dioxide, total [Moles /volume] in Central venous bloodOrdered By: Arlette Reyna on 09-22-2024 CO2 [Moles/Vol] 22.9 mmol/L Normal 21.0-32.0 [facility] Comment on above: Performed By: #### L 3100.5450, L801.4400, L501.5200, L100.0100, L3400.8000, L500.4050, L501.9520, L501.6710, L101.9900 #### [facility] [address] [facility] [place], [place], [id number] Chloride assayOrdered By: Ruperto Reyna on 09-22-2024 Chloride [Moles/Vol] 99 mmol/L Normal 98-108 [facility] Comment on above: Performed By: #### L 3100.5450, L801.4400, L501.5200, L100.0100, L3400.8000, L500.4050, L501.9520, L501.6710, L101.9900 #### [facility] [address] [place], [place], [id number] Comprehensive Metabolic Prof ilon 09-22-2024 ALK PHOS 67 U/L Normal 40-129 [facility] Comment on above: Performed By: #### L 3100.5450, L801.4400, L501.5200, L100.0100, L3400.8000, L500.4050, L501.9520, L501.6710, L101.9900 #### [facility] [address] [place], [address] BUN/CRE 15.0 RATIO Normal 10-20 [facility] Comment on above: Performed By: #### L 3100.5450, L801.4400, L501.5200, L100.0100, L3400.8000, L500.4050, L501.9520, L501.6710, L101.9900 #### [facility] [address] [place], [address] GAP 10 Normal 5-15 [facility] Comment on above: Performed By: #### L 3100.5450, L801.4400, L501.5200, L100.0100, L3400.8000, L500.4050, L501.9520, L501.6710, L101.9900 #### [facility] [address] [place], [place], [id number] Potassium [Moles/Vol] 4.1 mmol/L Normal 3.3-5.1 [facility] Comment on above: Performed By: #### L 3100.5450, L801.4400, L501.5200, L100.0100, L3400.8000, L500.4050, L501.9520, L501.6710, L101.9900 #### [facility] [address] [place], [place], [id number] T PROT 6.3 g/dL Normal 5.9-8.4 [facility] Comment on above: Performed By: #### L 3100.5450, L801.4400, L501.5200, L100.0100, L3400.8000, L500.4050, L501.9520, L501.6710, L101.9900 #### [facility] [address] [place], [address] Comprehensive Metabolic Prof ilOrdered By: Arlette Reyna on 09-22-2024 AST [Catalytic activity/Vol] 15 U/L Normal <=37 [facility] Comment on above: Performed By: #### L 3100.5450, L801.4400, L501.5200, L100.0100, L3400.8000, L500.4050, L501.9520, L501.6710, L101.9900 #### [facility] [address] [place], [place], [phone] Eosinophil percentageOrdered By: Arlette Reyna on 09-22-2024 Eosinophils/100 WBC (Bld) 0.9 % 0-5 [facility] Erythrocyte Sed Rateon 09-22 SED RATE 4 mm/hr Normal 0-20 [facility] Comment on above: Performed By: #### L 3100.5450, L801.4400, L501.5200, L100.0100, L3400.8000, L500.4050, L501.9520, L501.6710, L101.9900 #### [facility] [address] [place], [place], [id number] Erythrocyte distribution wid th ratioOrdered By: Arlette Reyna on 09-22-2024 Erythrocyte distribution width (RBC) [Ratio] 14.6 % 11.6-14.6 [facility] Erythrocyte distribution wid th standard deviationOrdered By: Arletteluis Reyna on 09-22-2024 Erythrocyte distribution width (RBC) [Ratio] 42.5 fl 35.1-43.9 [facility] Erythrocyte sedimentation ra teOrdered By: Arlette Reyna on 09-22-2024 ESR (Bld) [Velocity] 4 mm/h 0-20 [facility] Glomerular filtration rate ( GFR) estimation/1.73 sq m using serum, plasma, or whole bOrdered By: Arlette Reyna on 09-22-2024 GFR/1.73 sq M.predicted among non-blacks MDRD (S/P/Bld) [Vol rate/Area] 99 mL/min/{1.73_m2} Normal >60 [facility] Comment on above: mL/min/1.73m2 CKD-EP I Creatinine Equation (2020) Result Comment: mL/m in/1.73m2 CKD-EPI Creatinine Equation (2020) Performed By: #### L 3100.5450, L801.4400, L501.5200, L100.0100, L3400.8000, L500.4050, L501.9520, L501.6710, L101.9900 #### [facility] [address] [place], [place], [id number] Hematocrit Auto (Bld) [Volum e fraction]Ordered By: Arletteluis Reyna on 09-22-2024 Hematocrit (Bld) [Volume fraction] 43.4 % 40-54 [facility] Hemoglobin measurementOrdere d By: Arlette Reyna on 09-22-2024 Hemoglobin (Bld) [Mass/Vol] 13.9 g/dL 13.0-16.5 [facility] Immature granulocytes/100 WB C Auto (Bld)Ordered By: Arlette Reyna on 09-22-2024 Immature granulocytes/100 WBC (Bld) 0.200 % 0.0-0.9 [facility] Comment on above: IG% - Immature Granu locytes (promyelocytes, myelocytes and metamyelocytes) > 1% indicates that a LEFT SHIFT is Present. MCV (mean corpuscular volume ) determinationOrdered By: Arlette Reyna on 09-22-2024 MCV (RBC) [Entitic vol] 80.4 fL 80-94 [facility] Magnesiumon 09-22-2024 Magnesium [Mass/Vol] 2.5 mg/dL High 1.5-2.2 [facility] Comment on above: Performed By: #### L 3100.5450, L801.4400, L501.5200, L100.0100, L3400.8000, L500.4050, L501.9520, L501.6710, L101.9900 #### [facility] [address] [place], [address] Magnesium measurement (mass/ volume)Ordered By: Arlette Reyna on 09-22-2024 Magnesium (Unsp spec) [Mass/Vol] 2.5 mg/dL High 1.5-2.2 [facility] Mean corpuscular hemoglobin (MCH) determinationOrdered By: Arlette Reyna on 09-22-2024 MCH (RBC) [Entitic mass] 25.7 pg Low 27.0-32.0 [facility] Mean corpuscular hemoglobin concentration (MCHC) determinationOrdered By: Arlette Reyna on 09-22-2024 MCHC (RBC) [Mass/Vol] 32.0 g/dL 32-36 [facility] Mean platelet volume determi nationOrdered By: Arletteluis Reyna on 09-22-2024 Platelet mean volume (Bld) [Entitic vol] 10.7 fL 6.2-12.0 [facility] Monocyte percentageOrdered B y: Arlette Reyna on 09-22-2024 Monocytes/100 WBC (Bld) 12.0 % High 0-10 [facility] Neurology Visit Reporton Neurology Visit Report [facility] [address] [place] [address], [address] [place] [address] OFFICE VISIT Date of Service: 09/22/24 MR#: [id number] Acct: [id number] Name: RENATA JIANG Rep #: [id number] : 1970 Provider: Dr. Dat casey MD Age/Sex: 54/M Location: [facility]. Status: Signed HPI HPI Chief Complaint: Establish Care Details: The patient is a 54-year-old left handed male who presents to [facility]. He was referred 06/13/2024 by INNA Cadena with [facility] in [place] for tremor. This patient was seen with nurse practitioner Arlette Reyna. This patient presents for evaluation of tremor. He tells me that he has had left-handed tremor since high school. He remembers being in school and having friends he is not in school because his left hand with tremor when he was attempting to do certain forms of work. The tremor was accentuated by activity. Over the years the tremor gradually became worse. And also began to appear in his right hand. Tremor appears to be relatively high-frequency and pronounced but the patient refers to it as his hand began shaking as if he were about to roll dice. The tremor is intermittent in nature. Patient notes no other symptoms such as stiffness slowed walking difficulty swallowing or changes in vision. Patient also has a diagnosis of schizophrenia for which he receives aripiprazole resolved. Patient has a sleep disorder for which he receives trazodone for him milligrams p.o. nightly. With regard to his schizophrenia he remains functional. He does have auditory hallucinations which he hears voices speaking to them about going bankrupt or losing his house. These auditory hallucinations are controlled with his current medications. No visual hallucinations or other thought disorder noted. Patient was referred for evaluation of possible Parkinson's disease. ROS: 11 point review of systems indicated no other particular issues and that he is otherwise healthy. Exam Const Other: Blood pressure is 117/77 pulse 74 respiration 16 temperature 98.4 O2 sat 98%. BMI is 27.6% General appearance is that a well-developed well-nourished male no acute distress. HEENT: Normocephalic. Respiratory: Few restrictive airway sounds heard. Patient had recent respiratory infection. Cardiac: Regular rhythm no murmur Abdomen: No abdominal distention or tenderness Extremities: No evidence of trauma Skin: Intact. Neurologic examination: Mental status: Awake alert oriented x 3. Memory 3 for 3. Language showed normal medical resident expression repetition naming. Insight and judgment was basically intact. No active hallucinations or delusions noted at this time. Hallucinations that he has overall auditory and not visual. Cranial nerves II through XII: Pupils equal round minimally reactive about 3 mm in size. No visual field defect noted. Fundi not visualized. Extraocular muscles intact. Motor and sensory function of face normal. Hearing swallowing phonation head turning and tongue normal. Motor exam: No focal weakness identified. Cerebellar function shows that there was observed a typical pill-rolling type tremor left hand and less so in right hand. Minimal increase in tone and perhaps rigidity left wrist and at elbow. Right side normal. Legs normal. Reflexes were trace at biceps trace at knees. Sensory exam intact to tactile and vibratory sense all 4 extremities. Station gait is normal. Assessment and Plan Assessment and Plan (1) Parkinsonian syndrome: Status: Chronic Qualifiers: Parkinsonism type: unspecified Qualified Code(s): G20.C - Parkinsonism, unspecified Comment: Patient has had a left hand tremor since that being in high school. It is currently exacerbated with age as it has become progressive. Now also involves his right hand to certain degree. No other particular aspects of Parkinson's identified except for some mild increase in rigidity left upper extremity. Plan: 1. Trial of Sinemet 10 100s to be gradually increased. 2. Patient vies to contact neurology and primary care physician should there be any change in his overall status. 3. MRI of brain to look for reasons for asymmetric chronic tremor. 4. Patient to follow-up in neurology clinic in 3 months. (2) Schizophrenia: Status: Chronic Qualifiers: Schizophrenia type: other Qualified Code(s): F20.89 - Other schizophrenia Comment: Patient has longstanding schizophrenia but is functional and is well-controlled on current medications. This may complicate management of his Parkinson's disease as medications may exacerbate hallucinosis. Plan: 1. Patient aware of possibility of increased hallucinations. He has been advised to monitor and report any change in status to neurology department as well as treating physicians. Orders: Orders Brain W/WO Contrast Today G20.C - Parkinsonism, unspecified Orbits fo (more content not included)... Normal [facility] Neutrophil percentageOrdered By: Arlette Reyna on 09-22-2024 Neutrophils/100 WBC (Bld) 53.1 % 47-70 [facility] Nucleated red blood cell per centageOrdered By: Arlette Reyna on 09-22-2024 Nucleated RBC/100 WBC (Bld) [Ratio] 0 % 0-5 [facility] Orbits for Foreign Bodyon Orbits for Foreign Body [facility] Imaging Services [address] [place] [address] Orbits for Foreign Body MR#: [id number] Acct: [id number] Name: RENATA JIANG Rep #: [id number] : 1970 M 54 From: Harvey Russell MD PCP: SEAN Castillo Status: REG CLI Study: Orbits for Foreign Body Date of Exam: 09/22/24 Exam# [id number] Ordering Dr: Arlette ReynaC PROCEDURE: ORBITS FOR FOREIGN BODY 09/22/2024 REASON FOR EXAM: MRI CLEARANCE TECHNIQUE: 2 view(s) of the facial bones COMPARISON: None available FINDINGS: No radiopaque foreign body identified. RAD/Orbits for Foreign Body IMPRESSION: No radiopaque foreign body identified. Reading Location: [facility] CC: SEAN Cadena; SEAN Reyna Cloth Shader: Signed Normal [facility] Platelet countOrdered By: Ruperto Reyna on 09-22-2024 Platelets (Bld) [#/Vol] 231 10*3/uL 150-450 [facility] Potassium measurement (mass/ volume)Ordered By: Arlette Reyna on 09-22-2024 Potassium (Unsp spec) [Mass/Vol] 4.1 mmol/L 3.3-5.1 [facility] RBC Auto (Bld) [#/Vol]Ordere d By: Arlette Reyna on 09-22-2024 RBC (Bld) [#/Vol] 5.40 10*6/uL 4.6-6.2 [facility] Serum Scl-70 antibody assay (units/volume)Ordered By: Arlette Reyna on 09-22-2024 SCL-70 extractable nuclear Ab Qn (S) TNP [facility] Comment on above: Test not performed Serum creatinine measurement (mass/volume)Ordered By: Arlette Reyna on 09-22-2024 Creatinine [Mass/Vol] 0.93 mg/dL Normal 0.70-1.20 [facility] Comment on above: Performed By: #### L 3100.5450, L801.4400, L501.5200, L100.0100, L3400.8000, L500.4050, L501.9520, L501.6710, L101.9900 #### [facility] [address] [place], [address] Serum globulin measurementOr dered By: Arlette Reyna on 09-22-2024 Globulin (S) [Mass/Vol] 2.0 g/dL Low 2.2-4.2 [facility] Comment on above: Performed By: #### L 3100.5450, L801.4400, L501.5200, L100.0100, L3400.8000, L500.4050, L501.9520, L501.6710, L101.9900 #### [facility] [address] [place], [place], [id number] (914) Serum glucose measurement (m ass/volume)Ordered By: Arlette Reyna on 09-22-2024 Glucose [Mass/Vol] 92 mg/dL Normal 70-99 [facility] Comment on above: Performed By: #### L 3100.5450, L801.4400, L501.5200, L100.0100, L3400.8000, L500.4050, L501.9520, L501.6710, L101.9900 #### [facility] [address] [place], [place], [id number] Serum or plasma C reactive p rotein measurement (mass/volume)Ordered By: Arlette Reyna on 09-22-2024 CRP [Mass/Vol] mg/L 0.0-3.0 [facility] Serum or plasma alanine banuelos otransferase (ALT) measurementOrdered By: Arlette Reyna on 09-22-2024 ALT [Catalytic activity/Vol] 20 U/L Normal <=46 [facility] Comment on above: Performed By: #### L 3100.5450, L801.4400, L501.5200, L100.0100, L3400.8000, L500.4050, L501.9520, L501.6710, L101.9900 #### [facility] [address] [facility] [address] [place], [place], [id number] (829) Serum or plasma albumin kirill urement (mass/volume)Ordered By: Arlette Reyna on 09-22-2024 Albumin [Mass/Vol] 4.4 g/dL Normal 3.5-5.0 [facility] Comment on above: Performed By: #### L 3100.5450, L801.4400, L501.5200, L100.0100, L3400.8000, L500.4050, L501.9520, L501.6710, L101.9900 #### [facility] [address] [facility]. [place], [place], [id number] Serum or plasma albumin/glob ulin mass ratioOrdered By: Arlette Reyna on 09-22-2024 Albumin/Globulin [Mass ratio] 2.2 {ratio} Normal 0.9-2.4 [facility] Comment on above: Performed By: #### L 3100.5450, L801.4400, L501.5200, L100.0100, L3400.8000, L500.4050, L501.9520, L501.6710, L101.9900 #### [facility] [address] [place], [address] Serum or plasma alkaline moy sphatase measurementOrdered By: Arletteluis Reyna on 09-22-2024 ALP [Catalytic activity/Vol] 67 U/L 40-129 [facility] Serum or plasma calcium kirill urement (mass/volume)Ordered By: Arlette Reyna on 09-22-2024 Calcium [Mass/Vol] 8.4 mg/dL Normal 7.6-11.0 [facility] Comment on above: Performed By: #### L 3100.5450, L801.4400, L501.5200, L100.0100, L3400.8000, L500.4050, L501.9520, L501.6710, L101.9900 #### [facility] [address] [place], [place], [id number] Serum or plasma urea nitroge n measurement (mass/volume)Ordered By: Arlette Reyna on 09-22-2024 Urea nitrogen [Mass/Vol] 14 mg/dL Normal 4-19 [facility] Comment on above: Performed By: #### L 3100.5450, L801.4400, L501.5200, L100.0100, L3400.8000, L500.4050, L501.9520, L501.6710, L101.9900 #### [facility] [address] [place], [address] Sodium levelOrdered By: Wilfredo Reyna on 09-22-2024 Sodium [Moles/Vol] 132 mmol/L Low 133-145 [facility] Comment on above: Performed By: #### L 3100.5450, L801.4400, L501.5200, L100.0100, L3400.8000, L500.4050, L501.9520, L501.6710, L101.9900 #### [facility] [address] [facility] [place], [address] TSH DL <= 0.005 mIU/L QnOrde red By: Arlette Reyna on 09-22-2024 TSH Qn 1.250 uIU/mL 0.300-4.200 [facility] Thyroid Stim Hormone (TSH)on 09-22-2024 TSH 1.250 uIU/mL Normal 0.300-4.200 [facility] Comment on above: Performed By: #### L 3100.5450, L801.4400, L501.5200, L100.0100, L3400.8000, L500.4050, L501.9520, L501.6710, L101.9900 #### [facility] [address] [facility] [place], [address] Total proteinOrdered By: Valencia Reyna on 09-22-2024 Protein [Mass/Vol] 6.3 g/dL 5.9-8.4 [facility] White blood cell (WBC) count Ordered By: Arlette Reyna on 09-22-2024 WBC (Bld) [#/Vol] 4.3 10*3/uL Low 4.4-11.0 [facility] GLUCOSEon 07-18-2022 Glucose [Mass/Vol] 107 mg/dL High 74 - 106 [facility] Comment on above: Performed By: #### 2 [id number] #### [facility],[address] [place] [address] LIPID PROFILEon 07-18-2022 Cholesterol [Mass/Vol] 157 mg/dL Normal 0 - 240 [facility] Comment on above: Performed By: #### 2 12103 #### [facility],[address] [place] [address] Cholesterol in HDL [Mass/Vol] 58 mg/dL Normal 40 - 60 [facility] Comment on above: Performed By: #### 2 84141 #### [facility],[address] [place] [address] Cholesterol in LDL [Mass/Vol] 92 mg/dL Normal 0 - 129 [facility] Comment on above: Performed By: #### 2 41242 #### [facility],[address] [place] [address] Cholesterol.total/Choles terol in HDL [Mass ratio] 2.7 {ratio} Normal 0.0 - 5.0 [facility] Comment on above: Performed By: #### 2 82226 #### [facility],[address] [place] [address] Lipid 1996 panel Normal [facility] Comment on above: Result Comment: LIPI D PROFILE Performed By: #### 2 34052 #### [facility],[address] [place] [address] Triglyceride [Mass/Vol] 37 mg/dL Normal 0 - 150 [facility] Comment on above: Performed By: #### 2 00031 #### [facility],[address] [place] [address] Vital Signs Date Time Vital Sign Value Performing Clinician Gary sifuentes 09-22-2024 09:47-0400 Body height 175.26 cm No Primary Care Physician [facility] 09-22-2024 09:47-0400 Body mass index (BMI) [Ratio] 27.6 kg/m2 No Primary Care Physician [facility] 09-22-2024 09:47-0400 Body temperature 98.4 [degF] No Primary Care Physician [facility] 09-22-2024 09:47-0400 Body weight 84.82 kg No Primary Care Physician [facility] 09-22-2024 09:47-0400 Diastolic blood pressure 77 mm[Hg] No Primary Care Physician [facility] 09-22-2024 09:47-0400 Heart rate 74 /min No Primary Care Physician [facility] 09-22-2024 09:47-0400 Respiratory rate 16 /min No Primary Care Physician [facility] 09-22-2024 09:47-0400 SaO2% (BldA) [Mass fraction] 98 % No Primary Care Physician [facility] 09-22-2024 09:47-0400 Systolic blood pressure 117 mm[Hg] No Primary Care Physician [facility] Encounters Encounter Date Encounter Type Care Provider Facility Start: 10-16-[address] [facility] Facility: [facility] Start: 09-22-2024 End: 09-22-2024 ambulatory No Primary Care Physician [facility] Work Phone: Start: 09-22-2024 End: 09-22-2024 Patient encounter procedure Arlette Johnson CR[employer] PE[employer] CONTROL SPECIALIST-C [facility] Work Phone: Start: 09-22-2024 End: 09-22-[address] Dat Mcpherson MD -[facility] Work Phone: Start: 09-22-2024 End: 09-22-2024 ambulatory No Primary Care Physician [facility] Work Phone: Start: 09-22-2024 End: 09-22-[address] [facility] Facility:[facility] Start: 07-18-2022 End: 07-18-2022 ambulatory JENNIFER MASTERS [facility] Bernal [facility] Procedures Date Procedure Procedure Detail Performing Clinician Start: 09-22-2024 ANGELINA measurement No Prim mariel Care Physician Comment on above: Performed at: [address] [id number] Director: Stanton Cisneros PhD, Phone: [phone] Start: 09-22-2024 Antibody to centrome re measurement No Primary Care Physician Comment on above: Test not performed Start: 09-22-2024 Antibody to extracta ble nuclear antigen measurement No Primary Care Physician Comment on above: Test not performed Start: 09-22-2024 Antibody to KARL-1 measurement No Primary Care Physician Comment on above: Test not performed Start: 09-22-2024 Autoantibody measurement No Primary Care Physician Comment on above: Test not performed Start: 09-22-2024 MUSICAL INSTRUMENT SUPERVISOR antibody measurement No Primary Care Physician Comment on above: Test not performed Start: 09-22-2024 X-ray for foreign saroj dy of both orbits No Primary Care Physician Plan of Treatment Date Care Activity Detail Author Start: 09-22-2024 Cytoplasmic ANCA Screen [facility] Start: 09-22-2024 Fluorescent treponem al antibody absorption test [facility] Start: 09-22-2024 In-vitro immunologic test [facility] Antibody to lupus La protein measurement [facility] Antibody to SS-A measurement [facility] C reactive protein [ Mass/volume] in Serum or Plasma [facility] CBC W Auto Different ial panel - Blood [facility] Comprehensive metabo lic 2000 panel - Serum or Plasma [facility] DNA double strand Ab [Units/volume] in Serum [facility] Erythrocyte sedimentation rate [facility] Magnesium measurement [facility] MR Brain WO and W contrast IV [facility] Mycobacterium tuberc ulosis tuberculin stimulated gamma interferon [facility]Presence[facility] stimulating hormone measurement [facility] XR Orbit - bilateral Views for foreign body [facility] Payers Date Payer Category Payer Private Health Insurance [id number] 2024 Self-pay 1970 Unknown [id number] Unknown [id number] Unknown [id number] Unknown [id number] Social History Date Type Detail Facility Start: 09-22-2024 Tobacco smoking stat us NHIS Never smoked tobacco (finding) [facility] Start: 1970 Sex Assigned At Male [facility] Radiology Diagnostic study note 09-23-2024 Note Date & Type Note Facility 09-23-2024 Radiology Diagnostic study note [facility] Imaging Services [address] [place] [address] Orbits for Foreign Body MR#: [id number] Acct: [id number] Name: RENATA JIANG Rep #: [id number] : 1970 M 54 From: Alin Russell MD PCP: SEAN Castillo Status: REG C LI Study:Orbits for Foreign Body Date of Exam: 09/22/24 Exam# [id number] Ordering Dr: Arlette Reyna PROCEDURE: ORBITS FOR FOREIGN BODY 09/22/2024 REASON FOR EXAM: MRI CLEARANCE TECHNIQUE: 2 view(s) of the facial bones COMPARISON: None available FINDINGS: No radiopaque foreign body identified. RAD/Orbits for Foreign Body IMPRESSION: No radiopaque foreign body identified. Reading Location: [id number] CC: SEAN Cadena; SEAN Reyna ~ Cloth Shader: Signed [facility] Evaluation note 09-22-2024 Note Date & Type Note Facility 09-22-2024 Evaluation note Diagnosis Onset Date Resolution Parkinsonian syndrome chronic September 22, 2024 9:44am Schizophrenia chronic September 22 025 9:44am [facility] Work Phone: Evaluation note Note Date & Type Note Facility Evaluation note Diagnosis Onset Date Resolution Acute depression acute August 9:44am Parkinsonian syndrome acute September 22, 2024 9:44am Schizophrenia acute September 22, 2 025 9:44am [facility] [employer] Work Phone: Reason for referral (narrative) Note Date & Type Note Facility Reason for referral (narrative) No reason for referral information available [facility] Work Phone: Summary Purpose Family History No Family History Records Found Relationship Condition Age at Onset Recorded Date/T yanelis father Diabetes mellitus Unknown mother Malignant neoplasm Unknown Advance Directives No Advanced Directives Records FoundNo Advanced Directives Records Found Chief Complaint and Reason for Visit Chief Complaint Admit Date TREMOR September 22, 2024 9:44a m Reason for Visit Admit Date Acute depression September 22, 2024 9:44a m Parkinsonian syndrome September 22, 2024 9:4 4am Schizophrenia September 22, 2024 9:44a m Chief Complaint Admit Date TREMOR September 22, 2024 9:44a m EORDERS September 22, 2024 11:00 am Reason for Visit Admit Date Parkinsonian syndrome September 22, 2024 9:4 4am Schizophrenia September 22, 2024 9:44a m Additional Source Comments (unrecognized sect ion and content) No Status Records FoundNo Status Records Found INFORMATION SOURCE (unrecogn ized section and content) DATE CREATED AUTHOR 07/19/2022 [facility] DATE CREATED AUTHOR AUTHOR'S ORGANIZ ATION 10/15/2024 [facility] Care Teams (unrecognized sec tion and content) Team Status: Active Member Role Status Dates No Primary Care Physician Primary Care Provider Active Team Status: Inactive Member Role Status Dates No Primary Care Physician Primary Care Provider Active Start: September 22, 2024 End: September 22, 2024 No Primary Care Physician Referring Provider Active Start: September 22, 2024 End: September 22, 2024 Dr. Dat Mcpherson MD Attending Provider Active Start: September 22, 2024 End: September 22, 2024 Team Status: Active Member Role Status Dates Alison Cadena NP, [employer] CONTR[employer] SPECIALIST-C Primary Care Provider Active Team Status: Inactive Member Role Status Dates Alison Cadena NP, CR[employer] PEST CONTROL SPECIALIST-C Primary Care Provider Active Start: September 22, 2024 End: September 22, 2024 SEAN Chung Attending Provider Active S tart: September 22, 2024 End: September 22, 2024 SEAN Chung Referring Provider Active S tart: September 22, 2024 End: September 22, 2024 Goals (unrecognized section and content) Goals may be documented in a n alternate sectionGoals may be documented in an alternate section FOR RECORDS PERTAINING TO PATIENTS WHO ARE OR HAVE BEEN ENROLLED IN A CHEMICAL DEPENDENCY/SUBSTANCEABUSE PROGRAM, SOME INFORMATION MAY BE OMITTED. This clinical summary was aggregated from multiple sources. Caution should be exercised in using it in the provision of clinical care. This summary normalizes information from multiple sources, and as a consequence, information in this document may materially change the coding, format and clinical context of patient data. In addition, data may be omitted in some cases. CLINICAL DECISIONS SHOULD BE BASED ON THE PRIMARY CLINICAL RECORDS. [facility] [employer] [facility]. provides no warranty or guarantee of the accuracy or completeness of information in this document.
== END | disposition home or self-care (01) ==
LOC: OPMRI 07:13
PROVIDERS: PCP Nurse Practitioner Family
DX: G20.C Parkinsonism, unspecified (principal)
CPT/HCPCS: 70553; A9575